=== PATIENT | female | born 1985 | race Caucasian/White ===

== ENCOUNTER → 2018-01-02 | Outpatient (CLI) | payer SELFPAY ==
[~2018-01-02] MED LIST: ATIVAN 0.50.5 MG/TAB PO; ATIVAN 1MG T1 MG/TAB PO; OXYGEN; PRENATAL1 TA1 PO; PRILOSEC 20MG20 MG PO; ROBITUSSIN MM; SUDAFED30 MG PO; VISTARIL 2525 MG/CAP PO; VITAMIN C500 MG PO; ZOLOFT 50MG50 MG PO
== END ==
LOC: COL.RAD 13:30
DX: K22.4 Dyskinesia of esophagus (principal); K21.9 Gastro-esophageal reflux disease without esophagitis; M41.84 Other forms of scoliosis, thoracic region

== ENCOUNTER → 2018-06-05 | Outpatient (CLI) | payer BC | LOC: COL.RAD 15:49 | DX: M41.85 Other forms of scoliosis, thoracolumbar region (principal); M41.113 Juvenile idiopathic scoliosis, cervicothoracic region ==

== ENCOUNTER → 2018-08-19 | Outpatient (CLI) | payer BC | LOC: COL.RAD 13:20 | DX: M41.125 Adolescent idiopathic scoliosis, thoracolumbar region (principal) ==

== ENCOUNTER 2018-09-25 14:21 | Outpatient (RCR) | payer BC | END 2018-12-17 15:07 | disposition home or self-care (01) | LOC: MKS.ESL.PT 14:21 | DX: M41.114 Juvenile idiopathic scoliosis, thoracic region (principal); M41.113 Juvenile idiopathic scoliosis, cervicothoracic region; M41.117 Juvenile idiopathic scoliosis, lumbosacral region; R15.9 Full incontinence of feces; N39.42 Incontinence without sensory awareness ==

== ENCOUNTER → 2020-01-13 | Outpatient (CLI) | payer MEDICARE | LOC: COL.RAD 14:52 | DX: M41.124 Adolescent idiopathic scoliosis, thoracic region (principal); Q76.49 Other congenital malformations of spine, not associated with scoliosis; J90 Pleural effusion, not elsewhere classified; J98.11 Atelectasis ==

== ENCOUNTER 2021-04-30 09:45 | Outpatient (RCR) | payer MEDICARE | END 2021-05-01 | disposition home or self-care (01) | LOC: WSPT | DX: M41.9 Scoliosis, unspecified (principal) ==

== ENCOUNTER 2021-05-24 12:45 | Outpatient (RCR) | payer MEDICARE | END 2021-06-01 | disposition home or self-care (01) | LOC: WSC | DX: M41.9 Scoliosis, unspecified (principal) ==

== ENCOUNTER 2021-07-24 10:30 | Outpatient (RCR) | payer MEDICARE | END 2021-07-30 | disposition home or self-care (01) | LOC: WSC | DX: M41.9 Scoliosis, unspecified (principal) ==

== ENCOUNTER → 2021-08-30 | Outpatient (RCR) | payer MEDICARE | END | disposition home or self-care (01) | LOC: WSC | DX: M41.9 Scoliosis, unspecified (principal) ==

== ENCOUNTER 2021-09-28 09:45 | Outpatient (RCR) | payer MEDICARE | END 2021-09-29 | disposition home or self-care (01) | LOC: WSC | DX: M41.9 Scoliosis, unspecified (principal) ==

== ENCOUNTER → 2021-10-30 | Outpatient (RCR) | payer MEDICARE | END | disposition still patient (30) | LOC: WSC → WSPT 10-04 09:00 → WSC 10-16 09:00 → WSPT 10-18 09:45 → WSC 10-23 09:00 | DX: M41.9 Scoliosis, unspecified (principal) ==

== ENCOUNTER → 2021-11-29 | Outpatient (RCR) | payer MEDICARE | END | disposition still patient (30) | LOC: WSC → WSPT 11-06 09:00 → WSC 11-06 13:45 → WSPT 11-13 09:00 → WSC 11-20 09:00 → WSPT 11-22 09:00 → WSC 09:00 | DX: M41.9 Scoliosis, unspecified (principal) ==

== ENCOUNTER 2021-12-27 09:00 | Outpatient (RCR) | payer MEDICARE | END 2021-12-30 | disposition home or self-care (01) | LOC: WSPT | DX: M41.9 Scoliosis, unspecified (principal) ==

== ENCOUNTER 2022-01-28 09:00 | Outpatient (RCR) | payer MEDICARE | END 2022-01-30 | disposition home or self-care (01) | LOC: WSPT | DX: M41.9 Scoliosis, unspecified (principal) ==

== ENCOUNTER 2022-08-26 09:45 | Outpatient (RCR) | payer MEDICARE | END 2022-08-30 | disposition home or self-care (01) | LOC: WSPT | DX: M41.9 Scoliosis, unspecified (principal) ==

== ENCOUNTER 2022-09-26 09:45 | Outpatient (RCR) | payer MEDICARE | END 2022-09-26 16:00 | disposition home or self-care (01) | LOC: WSPT 09:45 | DX: M41.9 Scoliosis, unspecified (principal) ==

== ENCOUNTER 2023-08-14 14:15 | Outpatient (RCR) | payer OTHER | END 2023-08-31 | disposition home or self-care (01) | LOC: WSPT | DX: M41.9 Scoliosis, unspecified (principal) ==

== ENCOUNTER → 2023-10-31 | Outpatient (RCR) | payer OTHER | END | disposition home or self-care (01) | LOC: WSC | DX: M41.80 Other forms of scoliosis, site unspecified (principal) ==

== ENCOUNTER 2023-11-28 09:45 | Outpatient (RCR) | payer OTHER | END 2023-11-30 | LOC: WSPT | DX: M41.9 Scoliosis, unspecified (principal); R53.81 Other malaise ==